=== PATIENT | male | born 1930 | race Caucasian/White ===

== ENCOUNTER 2017-07-27 14:13 | Emergency (ER) | payer MEDICARE ==
[~2017-07-27] VITALS: Ht 167.6 cm; Wt 74.0 kg
[~2017-07-27 14:13] MED LIST: ASPI325T PO; ASPI81TA82 PO; HYDR-2768 PO; LEVO.025 PO; PRAV10 PO
[2017-07-27 14:18] VITALS: BP 160/76; PULSE 73; RESP 17; TEMP 98.3; O2SAT 96
[2017-07-27] MEDS ORDERED: ASPI81TA23 PO (14:58)
[2017-07-27] MEDS ORDERED: LEVO25TA4 PO (14:58)
[2017-07-27] MEDS ORDERED: HYDR25TA5 PO (14:58)
[2017-07-27] MEDS ORDERED: SIMV5TAB3 PO (14:58)
[2017-07-27] MEDS ORDERED: VITA1CAP7 PO (14:58)
[2017-07-27] MEDS ORDERED: VANCOMYCIN INJ 1,000 MG in SODIUM CHLOR 0.9% 250 ML INJ 250 ML IV STA (15:15)
[2017-07-27] MEDS ORDERED: PIPERACIL-TAZO 4.5 GM PREMIX 100 ML IV STA (15:15)
[2017-07-27 15:20] VITALS: BP 131/75; PULSE 71; RESP 16; TEMP 98.7; O2SAT 97
--- NOTE | 2017-07-27 15:26 | PD ---
HPI . Redness and swelling of the leg Chief Complaint: Skin Problem Time Seen by Provider: 15:13 Travel History International Travel<30 days: No Contact w/Intl Traveler<30days: No Traveled to known affect area: No History of Present Illness HPI This patient is brought in by his for evaluation of a wound to the left lower extremity. The history is obtained from his . She states that he has no short-term memory secondary to a previous stroke. He struck his left lower leg on a footstool a week ago. He suffered a laceration. His is been treating it at home with local wound care and antibiotic ointment. Despite this, the area became red, hot and swollen yesterday. She states that she took him to urgent care this morning and that they instructed her to bring him to the emergency department. He has noted no fever. He has not been complaining with any pain. PFSH Past Medical History Hx Anticoagulant Therapy: Yes (ASA DAILY) Atrial Fibrillation: Yes Cancer: Yes Cardiac Catheterization: Yes (ABLATION FOR AFIB) Cardiovascular Problems: Yes (HTN, AFIB, CARDIAC ABLATION) High Cholesterol: Yes Cerebrovascular Accident: Yes (STROKE) Diminished Hearing: No Hypertension: Yes Neurologic: Yes (short term memory loss due to hx of stroke) Immunizations Current: Yes Tetanus Vaccination: < 5 Years Influenza Vaccination: Yes Past Surgical History Prostatectomy: Yes (TURP) Other Surgery: Yes (RIGHT EAR SKIN CANCER REMOVED/REFORMED, hemorrhoidectomy) Social History Alcohol Use: Yes (mix drinks, or wine occas) Tobacco Use: No (QUIT 30 yrs ago smoked cigs) Substance Use: No Allergies-Medications (Allergen,Severity, Reaction): Coded Allergies: No Known Allergies (Verified Allergy, Unknown, 07/27/17) Reported Meds & Prescriptions Reported Meds & Active Scripts Active Reported Vitamin A (Vitamin A Palmitate) Unknown Strength Capsule Unknown Dose PO DAILY Simvastatin 5 Mg Tab 5 Mg PO DAILY Levothyroxine (Levothyroxine Sodium) 25 Mcg Tab 25 Mcg PO DAILY Hydrochlorothiazide 25 Mg Tab 25 Mg PO DAILY Aspirin EC (Aspirin) 81 Mg Tabdr 81 Mg PO DIRECTED take on days sat Review of Systems Except as stated in HPI: all other systems reviewed are Neg General / Constitutional: No: Fever, Chills Musculoskeletal: Positive: Edema Skin: Positive Change in Pigmentation Physical Exam Narrative GENERAL: Awake and alert and in no acute distress. SKIN: Warm and dry. He has a wound on the anterior driscoll which is about 5 mm in diameter. The tissue has started to epithelialize. There is no drainage. The surrounding skin does have some redness and warmth. It is very mild. HEAD: Normocephalic/atraumatic. EYES: Pupils are equal. Extraocular movements are intact. NECK: Normal range of motion. CARDIOVASCULAR: Regular rate and rhythm. RESPIRATORY: Nonlabored respirations. MUSCULOSKELETAL: Atraumatic. NEUROLOGICAL: Nonfocal. PSYCHIATRIC: Appropriate mood and affect. Data Data Last Documented VS Vital Signs Date Time Temp Pulse Resp B/P (MAP) Pulse Ox O2 Delivery O2 Flow Rate FiO2 07/27/17 15:20 98.7 71 16 131/75 (93) 97 Room Air Orders Orders Sepsis Workup Initiated (07/27/17 ) Complete Blood Count With Diff (07/27/17 15:15) Comprehensive Metabolic Panel (07/27/17 15:15) Lactic Acid Sepsis Protocol (07/27/17 15:15) Blood Culture (07/27/17 15:15) Iv Access Insert/Monitor (07/27/17 15:15) Piperacil-Tazo 4.5 Gm Premix (Zosyn 4.5 (07/27/17 15:15) Vancomycin Inj (Vancomycin Inj) (07/27/17 15:15) Labs Laboratory Tests Test 07/27/17 15:40 White Blood Count 3.7 TH/MM3 Red Blood Count 4.02 MIL/MM3 Hemoglobin 13.2 GM/DL Hematocrit 40.2 % Mean Corpuscular Volume 99.9 FL Mean Corpuscular Hemoglobin 32.8 PG Mean Corpuscular Hemoglobin Concent 32.8 % Red Cell Distribution Width 12.8 % Platelet Count 166 TH/MM3 Mean Platelet Volume 6.8 FL Neutrophils (%) (Auto) 60.8 % Lymphocytes (%) (Auto) 25.7 % Monocytes (%) (Auto) 11.1 % Eosinophils (%) (Auto) 2.0 % Basophils (%) (Auto) 0.4 % Neutrophils # (Auto) 2.3 TH/MM3 Lymphocytes # (Auto) 0.9 TH/MM3 Monocytes # (Auto) 0.4 TH/MM3 Eosinophils # (Auto) 0.1 TH/MM3 Basophils # (Auto) 0.0 TH/MM3 CBC Comment DIFF FINAL Differential Comment Blood Urea Nitrogen 19 MG/DL Creatinine 1.10 MG/DL Random Glucose 100 MG/DL Total Protein 6.8 GM/DL Albumin 3.3 GM/DL Calcium Level 8.9 MG/DL Alkaline Phosphatase 97 U/L Aspartate Amino Transf (AST/SGOT) 45 U/L Alanine Aminotransferase (ALT/SGPT) 52 U/L Total Bilirubin 0.7 MG/DL Sodium Level 139 MEQ/L Potassium Level 4.3 MEQ/L Chloride Level 102 MEQ/L Carbon Dioxide Level 30.4 MEQ/L Anion Gap 7 MEQ/L Estimat Glomerular Filtration Rate 64 ML/MIN Lactic Acid Level 0.9 mmol/L [facility] Medical Decision Making Medical Screen Exam Complete: Yes Emergency Medical Condition: Yes Differential Diagnosis My differential diagnosis includes but is not limited to localized wound infection, cellulitis, abscess Narrative Course This patient presents with cellulitis of his left lower extremity following a wound a week ago. I have ordered a septic workup although I suspect localized cellulitis. Pending workup, he will be treated with Zosyn and vancomycin. He does not meet SIRS criteria. CBC & BMP Diagram 07/27/17 15:40 Total Protein 6.8, Albumin 3.3 L, Calcium Level 8.9, Alkaline Phosphatase 97, Aspartate Amino Transf (AST/SGOT) 45 H, Alanine Aminotransferase (ALT/SGPT) 52, Total Bilirubin 0.7 LA 0.9 To home and treatment as an outpatient. Diagnosis Primary Impression: Cellulitis of left leg Patient Instructions: Cellulitis (DC), General Instructions Med/Other Pt SpecificInfo: Prescription(s) given Scripts Cephalexin (Keflex) 500 Mg Cap 500 MG PO Q8H for Infection, #30 CAP 0 Refills Prov: Reyna Pastor MD 07/27/17 Disposition: 01 DISCHARGE HOME Condition: Stable Reyna Pastor MD Jul 27, 2017 15:26
[2017-07-27 15:48] LABS: AUTOMATED NEUTROPHIL # 2.3 TH/MM3 (1.8-7.7); BASOPHIL % 0.4 % (0.0-2.0); EOSINOPHIL # 0.1 TH/MM3 (0-0.4); HEMATOCRIT 40.2 % (39.0-51.0); HEMOGLOBIN 13.2 GM/DL (13.0-17.0); LYMPH % 25.7 % (9.0-44.0); LYMPHOCYTE # 0.9 TH/MM3 (1.0-4.8); MEAN CELL VOLUME 99.9 FL (80.0-100.0); MEAN CORPUSCULAR HEMOGLOBIN 32.8 PG (27.0-34.0); MEAN CORPUSCULAR HGB CONC 32.8 % (32.0-36.0); MEAN PLATELET VOLUME 6.8 FL (7.0-11.0); MONO % 11.1 % (0.0-8.0); MONOCYTE # 0.4 TH/MM3 (0-0.9); NEUT % 60.8 % (16.0-70.0); PLATELET COUNT 166 TH/MM3 (150-450); RED BLOOD COUNT 4.02 MIL/MM3 (4.50-5.90); RED CELL DISTRIBUTION WIDTH 12.8 % (11.6-17.2); WHITE BLOOD COUNT 3.7 TH/MM3 (4.0-11.0)
[2017-07-27 15:59] LABS: CHLORIDE 102 MEQ/L (98-107); SODIUM (NA) 139 MEQ/L (136-145)
[2017-07-27 16:02] LABS: ALBUMIN 3.3 GM/DL (3.4-5.0); BICARBONATE 30.4 MEQ/L (21.0-32.0); CALCIUM 8.9 MG/DL (8.5-10.1); GLUCOSE,RANDOM 100 MG/DL (74-106)
[2017-07-27 16:03] LABS: BLOOD UREA NITROGEN 19 MG/DL (7-18)
[2017-07-27 16:06] LABS: ALT (GPT) 52 U/L (12-78); AST (GOT) 45 U/L (15-37); GLOMERULAR FILTRATION RATE 64 ML/MIN (>89)
[2017-07-27 16:07] LABS: TOTAL BILIRUBIN ADULT 0.7 MG/DL (0.2-1.0); TOTAL PROTEIN 6.8 GM/DL (6.4-8.2)
[2017-07-27 16:08] LABS: ALKALINE PHOSPHATASE 97 U/L (45-117)
[2017-07-27] MEDS ORDERED: CEPH-460 PO (16:15)
== END 2017-07-27 18:58 | disposition home or self-care (01) ==
LOC: PHED 14:13
DX: L03.116 Cellulitis of left lower limb (principal); I48.91 Unspecified atrial fibrillation; E78.00 Pure hypercholesterolemia, unspecified; I10 Essential (primary) hypertension; Z86.73 Personal history of transient ischemic attack (TIA), and cerebral infarction without residual deficits; Z79.82 Long term (current) use of aspirin; Z79.899 Other long term (current) drug therapy
CPT/HCPCS: 80053; 83605; 85025; 87040; 96365; 96367; 99284; J2543; J3370; J7050

== ENCOUNTER 2017-12-04 05:24 | Inpatient (IN) | payer MEDICARE, BC ==
[~2017-12-04] VITALS: Ht 172.7 cm; Wt 70.5 kg
[2017-12-04] VITALS (13 sets, daily range): BP systolic 142–185; BP diastolic 70–92; PULSE 56–76; RESP 16–18; TEMP 97.5–98.6; O2SAT 95–98
[~2017-12-04 05:24] MED LIST changes: -ASPI325T PO; +ASPI81TA23 PO; -ASPI81TA82 PO; +CEPH-460 PO; -HYDR-2768 PO; +HYDR25TA5 PO; -LEVO.025 PO; +LEVO25TA4 PO; -PRAV10 PO; +SIMV5TAB3 PO; +VITA1CAP7 PO
[2017-12-04] MEDS ORDERED: VITA100T50 (05:45)
[2017-12-04] MEDS ORDERED: NITROGLYCERIN 2% OINT 1 GM PACKET TOPICAL ONE (05:45)
[2017-12-04] MEDS ORDERED: LISI-519 PO (05:45)
[2017-12-04 05:50] LABS: AUTOMATED NEUTROPHIL # 1.8 TH/MM3 (1.8-7.7); BASOPHIL % 1.1 % (0.0-2.0); EOSINOPHIL # 0.1 TH/MM3 (0-0.4); HEMATOCRIT 40.8 % (39.0-51.0); HEMOGLOBIN 14.5 GM/DL (13.0-17.0); LYMPHOCYTE # 1.5 TH/MM3 (1.0-4.8); MEAN CELL VOLUME 97.1 FL (80.0-100.0); MEAN CORPUSCULAR HEMOGLOBIN 34.6 PG (27.0-34.0); MEAN CORPUSCULAR HGB CONC 35.6 % (32.0-36.0); MEAN PLATELET VOLUME 7.8 FL (7.0-11.0); MONO % 11.7 % (0.0-8.0); MONOCYTE # 0.5 TH/MM3 (0-0.9); NEUT % 46.2 % (16.0-70.0); PLATELET COUNT 136 TH/MM3 (150-450); RED CELL DISTRIBUTION WIDTH 13.3 % (11.6-17.2); WHITE BLOOD COUNT 3.9 TH/MM3 (4.0-11.0)
--- NOTE | 2017-12-04 05:52 | PD ---
HPI Chief Complaint: Chest Pain Time Seen by Provider: 05:34 Travel History International Travel<30 days: No Contact w/Intl Traveler<30days: No Traveled to known affect area: No History of Present Illness HPI The patient is an 87 year old male who presents to the [facility] emergency department with a history of according to ambulance services of awakening with chest pain prior to arrival. They report the fire rescue also evaluated the patient earlier in the evening related to an episode of chest pain that resolved prior to transport, therefore the patient decided to stay home. The patient has a known prior history of atrial fibrillation status post ablation. The patient's power brake rebuilder is Dr. Rooney. The patient received 3 low-dose aspirins prior to arrival and 1 sublingual nitroglycerin. The patient unfortunately has a history of short-term memory loss related to a prior stroke. The patient cannot recall having the chest pain at this time. He denies having any chest pain currently. He denies having any shortness of breath. The patient's is on the way and should be able to assist with further history. The patient lives at home with his . The patient's arrived at the bedside and reports a history of the patient having chest pain at 7:30 PM last night. The chest pain she reports was severe and associated with shortness of breath. She reports that the pain lasted for a few minutes and then resolved. The patient reports that at 4 AM he again awoke with pain that was severe in the center of his chest and associated with shortness of breath. She reports that this time the chest pain lasted longer for up to 30 minutes. She reports that he had been on a low-dose aspirin daily up until 3 weeks ago, however this was discontinued with the approval of his primary care physician due to easy bruising. She additionally reports that she recently started him on vitamin K supplementation because of easy bruising and bleeding. She denies of having any prior history of coronary artery disease or congestive heart failure. She does not recall him having a stress test done in years. 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, hyperlipidemia, hypertension, hypothyroid disorder Hx Anticoagulant Therapy: Yes (ASA DAILY) Atrial Fibrillation: Yes Cancer: Yes Cardiac Catheterization: Yes (ABLATION FOR AFIB) Cardiovascular Problems: Yes (HTN, AFIB, CARDIAC ABLATION) High Cholesterol: Yes Cerebrovascular Accident: Yes (STROKE) Diminished Hearing: No Hypertension: Yes Neurologic: Yes (short term memory loss due to hx of stroke) Immunizations Current: Yes Influenza Vaccination: Yes Past Surgical History Narrative Surgical The patient's past surgical history is significant for skin cancer removal from the right ear, hemorrhoidectomy, TURP, cardiac ablation Prostatectomy: Yes (TURP) Other Surgery: Yes (RIGHT EAR SKIN CANCER REMOVED/REFORMED, hemorrhoidectomy) Social History Alcohol Use: Yes (Occasional drink according to his ) Tobacco Use: No (QUIT 30 yrs ago smoked cigs) Substance Use: No Allergies-Medications (Allergen,Severity, Reaction): Coded Allergies: No Known Allergies (Verified Allergy, Unknown, 12/04/17) Reported Meds & Prescriptions Reported Meds & Active Scripts Active Reported Vitamin K (Phytonadione) 100 Mcg Tab Lisinopril 5 Mg Tab 5 Mg PO DAILY Simvastatin 5 Mg Tab 5 Mg PO DAILY Levothyroxine (Levothyroxine Sodium) 25 Mcg Tab 25 Mcg PO DAILY Review of Systems Except as stated in HPI: all other systems reviewed are Neg General / Constitutional: No: Fever Eyes: No: Visual changes HENT: No: Headaches Cardiovascular: Positive: Chest Pain or Discomfort Respiratory: Positive: Shortness of Breath Gastrointestinal: No: Abdominal Pain Genitourinary: No: Dysuria Musculoskeletal: No: Pain Skin: No Rash Neurologic: No: Weakness Psychiatric: No: Depression Endocrine: No: Polydipsia Hematologic/Lymphatic: No: Easy Bruising Physical Exam Narrative General: The patient is a well-developed well-nourished male in no acute distress. Head and Neck exam: Head is normocephalic atraumatic. Eyes: EOMI, pupils are equal round and reactive to light. Nose: Midline septum with pink mucous membranes Mouth: Dentition unremarkable. Moist mucus membranes. Posterior oropharynx is not erythematous. No tonsillar hypertrophy. Uvula midline. Airway patent. Neck: No palpable lymphadenopathy. No nuchal rigidity. No thyromegaly. Cardiovascular: Regular rate and rhythm without murmurs, gallops, or rubs. No pulse deficit to the extremities on simultaneous auscultation and palpation of his radial artery. Lungs: Clear to auscultation bilaterally. No wheezes, rhonchi, or rales. Abdomen: Soft, without tenderness to palpation in all 4 quadrants of the abdomen. No guarding, rebound, or rigidity. Normal bowel sounds are audible. No tenderness on palpation of McBurney's point. Extremities: No clubbing, cyanosis, or edema. 2+ pulses in all 4 extremities. No calf tenderness on palpation. Back: No costovertebral angle tenderness to palpation. Neurologic Exam: Grossly nonfocal. Skin Exam: No rash noted. Intact skin that is warm and dry. Data Data Last Documented VS Vital Signs Date Time Temp Pulse Resp B/P (MAP) Pulse Ox O2 Delivery O2 Flow Rate FiO2 12/04/17 06:01 58 18 157/86 (109) 95 Room Air 12/04/17 05:28 97.5 Orders Orders Electrocardiogram (12/04/17 05:34) Complete Blood Count With Diff (12/04/17 05:34) Comprehensive Metabolic Panel (12/04/17 05:34) Creatine Kinase (Cpk) (12/04/17 05:34) Ckmb (Isoenzyme) Profile (12/04/17 05:34) Troponin I (12/04/17 05:34) B-Type Natriuretic Peptide (12/04/17 05:34) Prothrombin Time / Inr (Pt) (12/04/17 05:34) Act Partial Throm Time (Ptt) (12/04/17 05:34) Lipase (12/04/17 05:34) Magnesium (Mg) (12/04/17 05:34) Chest, Single Ap (12/04/17 05:34) Iv Access Insert/Monitor (12/04/17 05:34) Ecg Monitoring (12/04/17 05:34) Oximetry (12/04/17 05:34) Nitroglycerin 2% Oint (Nitroglycerin 2% (12/04/17 05:45) Heparin Inj (Heparin Inj) (12/04/17 06:45) Heparin-D5w 25,000 U/250 Ml (Heparin-D5w (12/04/17 06:45) Cbc No Diff, Includes Plts (12/07/17 06:00) Act Partial Throm Time (Ptt) (12/04/17 13:33) Occult Blood (Hemoccult) Stool (12/04/17 06:33) Admit Order (Ed Use Only) (12/04/17 06:42) Admit To Inpatient (12/04/17 ) Vital Signs (Adult) Q4H (12/04/17 06:41) Activity Oob With Assistance (12/04/17 06:41) Diet Npo (12/04/17 Breakfast) Sodium Chloride 0.9% Flush (Ns Flush) (12/04/17 06:45) Sodium Chloride 0.9% Flush (Ns Flush) (12/04/17 09:00) Acetaminophen (Tylenol) (12/04/17 06:45) Ondansetron Inj (Zofran Inj) (12/04/17 06:45) Basic Metabolic Panel (Bmp) (12/05/17 06:00) Complete Blood Count With Diff (12/05/17 06:00) Creatine Kinase (Cpk) (12/04/17 11:40) Creatine Kinase (Cpk) (12/04/17 17:40) Troponin I (12/04/17 11:40) Troponin I (12/04/17 17:40) Electrocardiogram (12/04/17 11:40) Electrocardiogram (12/04/17 17:40) Resp Oxygen Tapan C Titrat 1-4 L (12/04/17 ) Case Management Consult (12/04/17 06:41) Naloxone Inj (Narcan Inj) (12/04/17 06:45) Docusate Sodium-Senna (Marielle-Colace) (12/04/17 09:00) Magnesium Hydroxide Liq (Milk Of Magnesi (12/04/17 06:45) Sennosides (Senokot) (12/04/17 06:45) Bisacodyl Supp (Dulcolax Supp) (12/04/17 06:45) Lactulose Liq (Lactulose Liq) (12/04/17 06:45) Inpatient Certification (12/04/17 ) Consult Cardiology (12/04/17 ) Levothyroxine (Synthroid) (12/04/17 09:00) Lisinopril (Prinivil) (12/04/17 09:00) Pravastatin (Pravachol) (12/04/17 09:00) Labs Laboratory Tests Test 12/04/17 05:40 White Blood Count 3.9 TH/MM3 Red Blood Count 4.20 MIL/MM3 Hemoglobin 14.5 GM/DL Hematocrit 40.8 % Mean Corpuscular Volume 97.1 FL Mean Corpuscular Hemoglobin 34.6 PG Mean Corpuscular Hemoglobin Concent 35.6 % Red Cell Distribution Width 13.3 % Platelet Count 136 TH/MM3 Mean Platelet Volume 7.8 FL Neutrophils (%) (Auto) 46.2 % Lymphocytes (%) (Auto) 39.0 % Monocytes (%) (Auto) 11.7 % Eosinophils (%) (Auto) 2.0 % Basophils (%) (Auto) 1.1 % Neutrophils # (Auto) 1.8 TH/MM3 Lymphocytes # (Auto) 1.5 TH/MM3 Monocytes # (Auto) 0.5 TH/MM3 Eosinophils # (Auto) 0.1 TH/MM3 Basophils # (Auto) 0.0 TH/MM3 CBC Comment DIFF FINAL Differential Comment Prothrombin Time 10.7 SEC Prothromb Time International Ratio 1.1 RATIO Activated Partial Thromboplast Time 25.3 SEC Blood Urea Nitrogen 17 MG/DL Creatinine 1.10 MG/DL Random Glucose 90 MG/DL Total Protein 6.7 GM/DL Albumin 3.6 GM/DL Calcium Level 8.9 MG/DL Magnesium Level 2.0 MG/DL Alkaline Phosphatase 80 U/L Aspartate Amino Transf (AST/SGOT) 20 U/L Alanine Aminotransferase (ALT/SGPT) 17 U/L Total Bilirubin 0.7 MG/DL Sodium Level 144 MEQ/L Potassium Level 3.9 MEQ/L Chloride Level 111 MEQ/L Carbon Dioxide Level 25.7 MEQ/L Anion Gap 7 MEQ/L Estimat Glomerular Filtration Rate 64 ML/MIN Total Creatine Kinase 66 U/L Troponin I 0.29 NG/ML B-Type Natriuretic Peptide 46 PG/ML Lipase 136 U/L MDM Medical Decision Making Medical Screen Exam Complete: Yes Emergency Medical Condition: Yes Medical Record Reviewed: Yes Differential Diagnosis Acute coronary syndrome, versus acid reflux, versus pulmonary embolism, versus aortic dissection, versus pneumonia, versus new onset congestive heart failure Narrative Course During the course of the patient's emergency department visit, the patient's history, examination, and differential diagnosis were reviewed with the patient. The patient was placed on a monitor car operator with oximetry and frequent blood pressure monitoring. The patient had IV access obtained and blood work sent for analysis. The patient had an EKG done on arrival that shows a sinus rhythm heart rate is 62, left axis deviation, QRS duration is 102 ms, QTC [address] segment elevation is noted. The patient was initially provided nitroglycerin 1 inch the chest wall. The patient was provided aspirin prior to arrival. The patient's laboratory studies were reviewed and remarkable for 12/04/17 05:40 Total Protein 6.7, Albumin 3.6, Calcium Level 8.9, Magnesium Level 2.0, Alkaline Phosphatase 80, Aspartate Amino Transf (AST/SGOT) 20, Alanine Aminotransferase (ALT/SGPT) 17, Total Bilirubin 0.7. The patient's CPK was 66, troponin I elevated at 0.29, lipase 136, BNP 46, PT PTT within normal limits. Given the patient's elevated troponin and recurrent chest pain over the evening , the patient was started on heparin per [place] protocol. Radiology studies were reviewed and remarkable for Last Impressions Chest X-Ray 12/04/17 0534 Signed Impressions: Service Date/Time: Monday, December 04, 2017 05:51 - CONCLUSION: Mild atelectatic changes/faint airspace disease in the left base. Jose Cosme MD The patient's results were discussed with the patient, including the plan of care. I explained that further testing and/ or monitoring is indicated based on the patient's history, examination, and/ or laboratory findings. Therefore, I recommended admission for additional evaluation. The patient expressed understanding and was agreeable with this plan. The patient was admitted to the hospital in stable condition and sent to a bed under the care of the [facility] service. Physician Communication Physician Communication The patient's case including history, pertinent physical examination findings, and laboratory studies were discussed with Dr. Metzger. It was agreed that the patient would be admitted to the [facility] service. Diagnosis Primary Impression: Chest pain, rule out acute myocardial infarction Additional Impression: Elevated troponin I level Admitting Information Admitting Physician Requests: Admit Felipa Flores MD December 04, 2017 05:52
[2017-12-04 06:07] LABS: PROTHROMBIN TIME - PATIENT 10.7 SEC (9.8-11.6)
[2017-12-04 06:08] LABS: INTERNATIONAL NORMALIZED RATIO 1.1 RATIO
[2017-12-04 06:16] LABS: ALBUMIN 3.6 GM/DL (3.4-5.0); ALKALINE PHOSPHATASE 80 U/L (45-117); ALT (GPT) 17 U/L (12-78); AST (GOT) 20 U/L (15-37); BICARBONATE 25.7 MEQ/L (21.0-32.0); BLOOD UREA NITROGEN 17 MG/DL (7-18); CALCIUM 8.9 MG/DL (8.5-10.1); CHLORIDE 111 MEQ/L (98-107); GLOMERULAR FILTRATION RATE 64 ML/MIN (>89); GLUCOSE,RANDOM 90 MG/DL (74-106); SODIUM (NA) 144 MEQ/L (136-145); TOTAL BILIRUBIN ADULT 0.7 MG/DL (0.2-1.0); TOTAL PROTEIN 6.7 GM/DL (6.4-8.2); TROPONIN I 0.29 NG/ML (0.02-0.05)
--- NOTE | 2017-12-04 06:19 | RADRPT ---
EXAM DATE/TIME: 12/04/2017 05:51 [facility] COMPARISON: CHEST SINGLE AP, April 04, 2015, 0:26. INDICATIONS : Chest pain. MEDICAL HISTORY : None. SURGICAL HISTORY : None. ENCOUNTER: Initial ACUITY: 1 day PAIN SCORE: 7/10 LOCATION: Bilateral chest FINDINGS: A single view of the chest demonstrates mild atelectatic changes above the left hemidiaphragm with a faint air space process more medially. Right lung remains clear. Heart size is normal. Osseous struct ures are intact CONCLUSION: Mild atelectatic changes/faint airspace disease in the left base. Jose Cosme MD on December 04, 2017 at 6:16 Board Certified Radiologist. This report was verified electronically.
[2017-12-04] MEDS ORDERED: BISACODYL 10 MG SUPP RECTAL PRN (06:45)
[2017-12-04] MEDS ORDERED: NALOXONE HCL 0.4 MG/ML AMP IV PUSH PRN (06:45)
[2017-12-04] MEDS ORDERED: ACETAMINOPHEN 325 MG TAB PO PRN (06:45)
[2017-12-04] MEDS ORDERED: SENNOSIDES 8.6 MG TAB PO PRN (06:45)
[2017-12-04] MEDS ORDERED: HEPARIN-D5W 25,000 U/250 ML 250 ML IV PRN (06:45)
[2017-12-04] MEDS ORDERED: HEPARIN SODIUM - IV 10,000 UNITS/10 ML VIAL IV ONE (06:45)
[2017-12-04] MEDS ORDERED: SODIUM CHLORIDE 0.9% FLUSH 10 ML FLUSH IV FLUSH PRN (06:45)
[2017-12-04] MEDS ORDERED: LACTULOSE SYRUP 20 GM/30 ML CUP PO PRN (06:45)
[2017-12-04] MEDS ORDERED: MAGNESIUM HYDROXIDE SUSP 30 ML CUP PO PRN (06:45)
[2017-12-04] MEDS ORDERED: ONDANSETRON HCL 4 MG/2 ML VIAL IVP PRN (06:45)
[2017-12-04] MEDS ORDERED: PRAVASTATIN SOD 10 MG TAB PO SCH (09:00)
[2017-12-04] MEDS ORDERED: LEVOTHYROXINE SODIUM 25 MCG TAB PO SCH (09:00)
--- NOTE | 2017-12-04 09:36 | EKG ---
Date Performed: 12/04/2017 Time Performed: 05:23:58 PTAGE: 87 years EKG: Normal Sinus rhythm with first degree AV block Marked baselline artifact Incomplete right bundle branch block PREVIOUS TRACING 04/03/15 Aside from artifact, no change from the prior tracing. DOCTOR: Damon Flores Interpretating Date/Time 12/04/2017 09:35:46
[2017-12-04] MEDS: LISINOPRIL 5 MG TAB PO SCH (10:46)
[2017-12-04] MEDS: DOCUSATE SODIUM 50 MG/SENNA 8.6 MG TAB PO SCH ×2 (10:46→21:45)
[2017-12-04] MEDS: SODIUM CHLORIDE 0.9% FLUSH 10 ML FLUSH IV FLUSH SCH ×2 (10:47→21:46)
[2017-12-04] MEDS ORDERED: IOHEXOL 350 MG/ML 100 ML BTL (for Cath Lab) OTHER ONE (11:03)
[2017-12-04 13:21] LABS: TROPONIN I 0.36 NG/ML (0.02-0.05)
--- NOTE | 2017-12-04 14:23 | MB ---
cc: Hong Rooney MD DATE: 12/04/2017 HISTORY OF PRESENT ILLNESS: An 87-year-old white male with a history of atrial fibrillation, ablation and CVA with permanent short-term memory deficits, dyslipidemia, hypertension and hypothyroidism. His reported that he suddenly started to clutch his chest and complained of severe substernal chest discomfort. At this time, he does not remember his symptoms. He was found to have a troponin elevation consistent with non-ST elevation myocardial infarction. He is currently pain free. PAST MEDICAL HISTORY: Positive for atrial fibrillation, AFib ablation, CVA in 2009, permanent short-term memory loss, dyslipidemia, hypertension, hypothyroidism. MEDICATIONS: Include levothyroxine, simvastatin, lisinopril, vitamin K. ALLERGIES: NONE. SOCIAL HISTORY: The patient does not smoke. He quit smoking years ago. He drinks alcohol occasionally. FAMILY HISTORY: Positive for heart disease in his father. REVIEW OF SYSTEMS: Otherwise negative. PHYSICAL EXAMINATION: VITAL SIGNS: Blood pressure 142/70, pulse 64 and regular. HEENT: Negative. NECK: 2+ upstroke. No bruits. LUNGS: Clear. HEART: Regular with no murmur, gallop or rub. ABDOMEN: Soft. No bruits. EXTREMITIES: Without edema, 2+ distal pulses. NEUROLOGIC: Grossly nonfocal. LABORATORY AND DIAGNOSTIC DATA: EKG was reviewed and showed normal sinus rhythm, first degree AV block, left axis, incomplete right bundle branch block. Labs: Hemoglobin 14.5. Potassium 3.9, creatinine 1.1. AST, ALT normal. Troponin 0.29 and 0.36, CK 66 and 53. BNP 46. DIAGNOSES: 1. Non-ST elevation myocardial infarction. 2. Hypertension. 3. Dyslipidemia. 4. History of cerebrovascular accident with permanent short-term memory loss. 5. History of radiofrequency ablation for atrial fibrillation. DISPOSITION: Mr. Celeste will undergo cardiac catheterization and coronary intervention if necessary. The patient and his understand the risks and benefits and wish to proceed. Hong Rooney MD OQ/SB , 02:06 PM , 02:23 PM
--- NOTE | 2017-12-04 15:18 | HHI.HP ---
HPI Service [facility] Primary Care Physician Nicholas Parker MD Admission Diagnosis Chest pain, elevated troponin Diagnoses: Travel History International Travel<30 Days: No Contact w/Intl Traveler <30 Da: No Traveled to Known Affected Are: No History of Present Illness Patient is an 87-year-old male with past medical history of atrial fibrillation status post ablation, CVA with short-term memory deficit, hyperlipidemia, hypertension, hyperthyroidism presented to the emergency room with complaints of chest pains. History is obtained from significant other who states that around 7 PM last night patient started grabbing his chest and could not breathe. He also started shaking and she took his blood pressure which was a systolic blood pressure 180s. She called EMS, they came and evaluated him at his house and since because he had eaten one quarter pounder, they thought it was related to indigestion as EKG was normal and he was not taken to the hospital. Around 4 AM, when he was back from the bathroom, he started again experiencing excruciating pain. She decided to call EMS again. On both occasions he received nitroglycerin spray. gave him a full dose of aspirin. Patient was not diaphoretic per significant other, and did not complain of any lightheadedness or dizziness. She did note that he had poor capillary refill on exam while the EMS were there. Currently, patient denies any chest pain, shortness of breath, nausea or vomiting. Review of Systems Except as stated in HPI: all other systems reviewed are Neg Past Family Social History Past Medical History atrial fibrillation status post ablation, CVA with short-term memory deficit, hyperlipidemia, hypertension, hyperthyroidism Past Surgical History Cardiac ablation, TURP Reported Medications Reported Meds & Active Scripts Active Reported Vitamin K (Phytonadione) 100 Mcg Tab Lisinopril 5 Mg Tab 5 Mg PO DAILY Simvastatin 5 Mg Tab 5 Mg PO DAILY Levothyroxine (Levothyroxine Sodium) 25 Mcg Tab 25 Mcg PO DAILY Allergies: Coded Allergies: No Known Allergies (Verified Allergy, Unknown, 12/04/17) Family History Mother had a CVA, father had a heart attack Social History Quit smoking 30 years ago. He used to smoke a pack a day for 37 years. Drinks wine occasionally. Denies illegal drug use. Physical Exam Vital Signs Vital Signs Date Time Temp Pulse Resp B/P (MAP) Pulse Ox O2 Delivery O2 Flow Rate FiO2 12/04/17 12:00 64 12/04/17 08:26 97.6 56 17 142/70 (94) 96 12/04/17 08:10 12/04/17 06:01 58 18 157/86 (109) 95 Room Air 12/04/17 05:36 98 Room Air 12/04/17 05:35 69 16 98 Room Air 12/04/17 05:28 97.5 61 18 185/90 (121) 98 Room Air Physical Exam GENERAL: elderly male, pleasant, appears comfortable SKIN: No rashes, ecchymoses or lesions. Cool and dry. HEAD: Atraumatic. Normocephalic. No temporal or scalp tenderness. EYES: Extraocular motions intact. ENT: Nose drainage. Airway patent. NECK: Trachea midline. No JVD or lymphadenopathy. CARDIOVASCULAR: Regular rate and rhythm without murmurs RESPIRATORY: Clear to auscultation. Breath sounds equal bilaterally. No wheezes GASTROINTESTINAL: Abdomen soft, non-tender, nondistended. No guarding. MUSCULOSKELETAL: Extremities without edema. NEUROLOGICAL: Awake and alert. Normal speech. Pt does forget recent events/ questions Laboratory Laboratory Tests Test 12/04/17 05:40 12/04/17 11:49 White Blood Count 3.9 Red Blood Count 4.20 Hemoglobin 14.5 Hematocrit 40.8 Mean Corpuscular Volume 97.1 Mean Corpuscular Hemoglobin 34.6 Mean Corpuscular Hemoglobin Concent 35.6 Red Cell Distribution Width 13.3 Platelet Count 136 Mean Platelet Volume 7.8 Neutrophils (%) (Auto) 46.2 Lymphocytes (%) (Auto) 39.0 Monocytes (%) (Auto) 11.7 Eosinophils (%) (Auto) 2.0 Basophils (%) (Auto) 1.1 Neutrophils # (Auto) 1.8 Lymphocytes # (Auto) 1.5 Monocytes # (Auto) 0.5 Eosinophils # (Auto) 0.1 Basophils # (Auto) 0.0 CBC Comment DIFF FINAL Differential Comment Prothrombin Time 10.7 Prothromb Time International Ratio 1.1 Activated Partial Thromboplast Time 25.3 Blood Urea Nitrogen 17 Creatinine 1.10 Random Glucose 90 Total Protein 6.7 Albumin 3.6 Calcium Level 8.9 Magnesium Level 2.0 Alkaline Phosphatase 80 Aspartate Amino Transf (AST/SGOT) 20 Alanine Aminotransferase (ALT/SGPT) 17 Total Bilirubin 0.7 Sodium Level 144 Potassium Level 3.9 Chloride Level 111 Carbon Dioxide Level 25.7 Anion Gap 7 Estimat Glomerular Filtration Rate 64 Total Creatine Kinase 66 53 Troponin I 0.29 0.36 B-Type Natriuretic Peptide 46 Lipase 136 Result Diagram: 12/04/1753912/04/17539 Imaging Last Impressions Chest X-Ray 12/04/17533 Signed Impressions: Service Date/Time: Monday, December 04, 2017 05:51 - CONCLUSION: Mild atelectatic changes/faint airspace disease in the left base. MD Gaby Rodríguez VTE Risk Assessment Gaby VTE Risk Assessment: Mod/High Risk (score >= 2) Kimanirini Risk Assessment Model Point Value = 1 Point Value = 2 Point Value = 3 Point Value = 5 Age 41-60 Minor surgery BMI > 25 kg/m2 Swollen legs Varicose veins or History of unexplained or recurrent spontaneous Oral contraceptives or hormone replacement Sepsis (< 1 month) Serious lung disease, including pneumonia (< 1 month) Abnormal pulmonary function Acute myocardial infarction Congestive heart failure (< 1 month) History of inflammatory bowel disease Medical patient at bed rest Age 61-74 Arthroscopic surgery Major open surgery (> 45 min) Laparoscopic surgery (> 45 min) Malignancy Confined to bed (> 72 hours) Immobilizing plaster cast Central venous access Age >= 75 History of VTE Family history of VTE Factor V Leiden Prothrombin [id number] Lupus anticoagulant Anticardiolipin antibodies Elevated serum homocysteine Heparin-induced thrombocytopenia Other congenital or acquired thrombophilia Stroke (< 1 month) Elective arthroplasty Hip, pelvis, or leg fracture Acute spinal cord injury (< 1 month) Prophylaxis Regimen Total Risk Factor Score Risk Level Prophylaxis Regimen 0-1 Low Early ambulation 2 Moderate Order ONE of the following: *Sequential Compression Device (SCD) *Heparin 5000 units SQ BID 3-4 Higher Order ONE of the following medications: *Heparin 5000 units SQ TID *Enoxaparin/Lovenox 40 mg SQ daily (WT < 150 kg, CrCl > 30 mL/min) *Enoxaparin/Lovenox 30 mg SQ daily (WT < 150 kg, CrCl > 10-29 mL/min) *Enoxaparin/Lovenox 30 mg SQ BID (WT < 150 kg, CrCl > 30 mL/min) AND/OR *Sequential Compression Device (SCD) 5 or more Highest Order ONE of the following medications: *Heparin 5000 units SQ TID (Preferred with Epidurals) *Enoxaparin/Lovenox 40 mg SQ daily (WT < 150 kg, CrCl > 30 mL/min) *Enoxaparin/Lovenox 30 mg SQ daily (WT < 150 kg, CrCl > 10-29 mL/min) *Enoxaparin/Lovenox 30 mg SQ BID (WT < 150 kg, CrCl > 30 mL/min) AND *Sequential Compression Device (SCD) Assessment and Plan Assessment and Plan NSTEMI: presented w chest pains, s/p nitro. EKG reviewed and didn't show any ST elevations or depressions. Cardiology notified and plans on cardiac cath later this pm. on heparin gtt. Pt already received full dose of ASA. added nitropaste , coreg 12.5mg po BID. Pt on low dose statin, check lipid profile. May need higher dose. HTN: continue home lisinopril. added vasotec prn hyperlipidemia: resume home med. check lipid profile hypothyroidism: resume synthroid dvt proph: heparin gtt Code Status full Discussed Condition With patient and Hiwot Sims MD December 04, 2017 15:18
[2017-12-04] MEDS ORDERED: HEPARIN-NS/PF FLUSH BAG 2,000 ML IV FLUSH ONE (16:13)
[2017-12-04] MEDS ORDERED: MIDAZOLAM HCL 2 MG/2 ML VIAL ONE (16:23)
[2017-12-04] MEDS ORDERED: NITROGLYCERIN 2% OINT 1 GM PACKET TOPICAL PRN (17:00)
[2017-12-04] MEDS ORDERED: HEPARIN SODIUM - IV 10,000 UNITS/10 ML VIAL ONE (17:01)
[2017-12-04] MEDS ORDERED: CLOPIDOGREL 300 MG TAB ONE (17:27)
[2017-12-04] MEDS ORDERED: MISC INFORMATION XX ONE (17:45)
[2017-12-04] MEDS ORDERED: SODIUM CHLOR 0.9% 1000 ML INJ 1,000 ML IV SCH (17:45)
--- NOTE | 2017-12-04 17:56 | CATHPROC ---
re3D HIS Report Study Information Study Number Admission Scheduled Start Study Start [id number] Dec 04 2017 6:45AM 12/04/2017 Dec 04 2017 3:46PM [place] Service Cardiac Catheterization Admit Source Facility Department Emergency department [facility] - Taping Machine Operator Physician and Clinical Staff Initial [facility] Nursing Assistant Chrissy Chen,RN Hospital Nursing Assistant Isaias RN, Roly Recorder Malaika Clarke,RT(R) Scrub Ifeoma Vallecillo,RT(R) Procedures Performed Procedure Location (Site) Vessel Name Coronary Angiograms LCA Left Coronary Coronary Angiograms RCA Right Coronary PTCA LAD Prox Left Coronary PTCA ADD ON'S Stent LAD Prox Left Coronary Wire insertion Fem Art (right) Femoral Art Equipment Time Leaf Fat Scraper Description Size Mfg Part Number Used/Scraped WIRE, BALANCE MIDDLEWEIGHT [id number] 17:02 [employer] 190CM Used 190CM *[id number] TRANSDUCER, TRUWAVE [id number] 16:21 BATES MAGDALENO * Used W/STOCKCOCK *[id number] *[id number] [id number] *[id number] [id number] *[id number] *[id number] 17:28 DAIG/ST. ANGELA MEDICAL ANGIOSEAL, FR6 VIP FR 6 Used *[id number] 16:21 Ready [employer] INDUSTRIES PACK, CCL CUSTOM * Used *[id number] 16:21 [employer] PACER PEN, SKIN DUAL W/ RULER * Used *[id number] 17:10 MEDTRONIC BALLOON, 2.5 X 15MM EUPHORA 15MM Used *[id number] BALLOON, 2.75 X 15MM NC [id number] 17:20 MEDTRONIC 15MM Used EUPHORA *[id number] 17:15 MEDTRONIC STENT, 2.75 22 INTEGRITY 2.75 22 Used *[id number] 17:06 [employer] MEDICAL 30 CHACORTA INDEFLATOR Used *[id number] SHEATH, FR6 RADIAL PRELUDE 17:29 [employer] MEDICAL FR 6 [id number] Used EASE 11CM [id number] 17:29 [employer] MEDICAL SHEATH, FR6.5 PRELUDE 23CM FR 6.5 Used [id number] 16:21 Abaxia WIRE, 3MMJ .035 180CM 180CM Used *[id number] PROBE COVER, STERILE [id number] 16:21 Student [employer]igned[employer]K MEDICAL * Used ULTRASOUND W/ GEL *[id number] 16:21 NAMIC MANIFOLD, 4 PORT * Used *[id number] 16:26 NAMIC TUBING, HIGH PRESSURE 48" 48" Used *1036023 [id number] 16:21 NAMIC TUBING, HIGH PRESSURE 48" 48" Used *[id number] 16:21 NYCOMED OMNIPAQUE, 350 MG, 150ML 150ML [id number] Used 17:06 NYCOMED OMNIPAQUE, 350 MG, 150ML 150ML [id number] Used 17:06 NYCOMED OMNIPAQUE, 350 MG, 50ML 50ML [id number] Used [id number] 16:21 ALEMAN MEDICAL BLANKET,WARM AIR CCL * Used *[id number] 16:21 TERUMO MEDICAL SHEATH, FR5 TERUMO (10CM) FR 5 Used *[id number] Equipment Model, Serial, Lot Number and Expiration Data Description Model Number Serial Number Lot Number Expiration Date ANGIOSEAL, FR6 VIP [id number] 07-04-2018 STENT, 2.75 22 INTEGRITY [id number] 11-29-2018 History: Current Medications Medication Dosage/Unit Route Frequency Last Date/Time Taken Statins (any) HEPARIN Synthroid History: Allergies Allergy Reaction No Known Allergies History: Risk Factors Family History of Hypertension Dyslipidemia Previous PA Previous Heart Failure Premature CAD Yes Yes Yes No No Prior Valve Prior PCI Prior CABG Surgery No No No Cerebrovascular Peripheral Artery Chronic Lung On Dialysis Diabetes Disease Disease Disease No Yes No No No History: Symptoms/Diagnosis Selection Items Chest pain History: Stress Tests Stress or Imaging Studies Performed No History: Other Disease Selection Items HTN History: Other Current Smoker Method Quit Packs a Day Years Used Pack Years No Cigarettes 30 Years Ago 1 40 40 Labs Hgb (g/dl) Hct (%) WBC (l/cumm) Platelets (thousands) 11.60-17.00 35.00-51.00 4.00-11.00 150.00-450.00 14.5 40.8 3.9 136 Glucose (mg/dl) BUN (mg/dl) Creatinine (mg/dl) BUN:Creatinine (1:x) 74.00-106.00 7.00-18.00 0.50-1.30 10.00-20.00 90 17 1.1 15.5 Na (meq/l) K (meq/l) 136.00-145.00 3.50-5.10 144 3.9 INR (PTT:PT) 0.90-1.10 1.1 Troponin I (ng/ml) CPK (u/l) CPK-MB (ng/ML) 0.02-0.05 26.00-308.00 0.50-3.60 0.29 53 Not Drawn Medication Medication Total Dose (Bolus/Oral) Medication Total Dosage/Unit 1% XYLOCAINE 20 mL FENTANYL 75 mcg HEPARIN 5000 units NTG (IC) 200 mcg PLAVIX 600 mg VERSED 2.5 mg Medications (Bolus/Oral) Medication Time Given Dosage/Unit Administered By Reason VERSED 12/04/2017 4:44:40 PM 2 mg Chrissy Chen 2 mg VERSED given in lab by Chrissy Chen RN in Right Antecubital via Peripheral IV. FENTANYL 12/04/2017 4:45:27 PM 50 mcg Chrissy Chen 50 mcg FENTANYL given in lab by Chrissy Chen RN via Peripheral IV. 1% XYLOCAINE 12/04/2017 4:52:30 PM 20 mL Hong Rooney 20 mL 1% XYLOCAINE given in lab by Hong Rooney in Right Groin via Subcutaneous. FENTANYL 12/04/2017 4:54:00 PM 25 mcg Roly Esparza RN 25 mcg FENTANYL given in lab by Roly Esparza RN via Peripheral IV. VERSED 12/04/2017 4:55:15 PM 0.5 mg Roly Esparza RN 0.5 mg VERSED given in lab by Roly Esparza RN via Peripheral IV. HEPARIN 12/04/2017 5:04:50 PM 5000 units Roly Esparza RN 5000 units HEPARIN given in lab by Roly Esparza RN via Peripheral IV. NTG (IC) 12/04/2017 5:06:14 PM 200 mcg Ifeoma Vallecillo 200 mcg NTG (IC) given in lab by Ifeoma Vallecillo RT(R) via Intra-coronary. PLAVIX 12/04/2017 5:35:52 PM 600 mg Roly Esparza RN 600 mg PLAVIX given in lab by Roly Esparza RN via Oral. Medication (Drip) Medication Time Given Dosage/Unit Concentration/Unit Diluent (ml) Solution IV Solutions 12/04/2017 4:10:29 PM 0 mL (IV) 500 NaCl .9 IV Solutions given in lab by Chrissy Chen RN in Right Antecubital via Peripheral IV. Pump/Drip Fl ow = 20 ml/hr using NaCl .9. Initial Case Assessment Cardiovascular HR Rhythm NIBP Chest Pain 71 Sinus 152/92 0 Edema Present Skin color Skin None Normal Warm Dry Circulatory - Right Pulses Dorsalis Pedis Femoral 2 3 Scale (0,1,2,3,4,d) Circulatory - Left Pulses Dorsalis Pedis Femoral 2 3 Scale (0,1,2,3,4,d) Neurological State Oriented to time-place- Alert Moves all extremities person Respiration - General Respiration Rate SpO2 (%) O2 (lpm) (B/min) 12 97 0 Initial Case Assessment Cardiovascular HR Rhythm NIBP Chest Pain 79 reg 155/88 0 Edema Present Skin color Skin None Normal Warm Circulatory - Right Pulses Dorsalis Pedis Femoral 3 3 Scale (0,1,2,3,4,d) Circulatory - Left Pulses Dorsalis Pedis Femoral 3 3 Scale (0,1,2,3,4,d) Circulatory - Lower Extremities Color Lower Right Color Lower Left Normal Normal Neurological State Oriented to time-place- Alert Moves all extremities person Respiration - General Respiration Rate SpO2 (%) (B/min) 9 97 Final Case Assessment Cardiovascular HR Rhythm NIBP 80 irreg 135/68 Edema Present Skin color Skin None Normal Warm Circulatory - Right Pulses Dorsalis Pedis Femoral 3 3 Scale (0,1,2,3,4,d) Circulatory - Left Pulses Dorsalis Pedis Femoral 3 3 Scale (0,1,2,3,4,d) Circulatory - Lower Extremities Color Lower Right Color Lower Left Normal Normal Neurological State Oriented to time-place- Alert Moves all extremities person Respiration - General Respiration Rate SpO2 (%) (B/min) 9 95 Chronological Log Time Study Chronological Log 16:10:11 Patient arrived via Bed. 16:10:12 Patient Name, D.O.B, / Armband Verified By R.N. 16:10:13 Consent signed by the physician and the patient and verified by the Taping Machine Operator staff. 16:10:14 Pre-op and post- op instructions given; patient acknowledges understanding of instructions. 16:10:14 Verbal Stimulation=2 Physical Stimulation=2 Airway=2 Respiration=2 TOTAL=8. (0=absent, 1=li mited, 2=present) 16:10:16 Presedation assessment performed by Taping Machine Operator RN. 16:10:19 Patient has been NPO for Less than 6Hrs. 16:10:20 Skin Breakdown- generalized bruising all extreamities. 16:10:25 Patient Warmer Placed on the Table. 16:10:26 Sohan Prominences Protected 16:10:28 A # 20 IV was noted in the Antecubital (right). Grade = 0 IV Solutions given in lab by Chrissy Chen, RN in Right Antecubital via Peripheral IV. Pump/D rip Flow = 20 ml/hr 16:10:29 using NaCl .9. 16:10:30 History and physical on the chart or being dictated. 16:14:34 A # 20 IV was noted in the Hand (right). Grade = 0 Assessment: Initial Case, HR=71 BPM, Rhythm=Sinus, AOIR=711/92 mmhg, Chest Pain=0, Edema=None, Color=Normal, Skin = Warm, Dry Right Pulses: Go Ped=2, Femoral=3 16:15:07 Left Pulses: Go Ped=2, Femoral=3 Neurological: State=Alert, Ox3, HERNANDEZ Respiration: Resp=12 B/min, SpO2=97 %, O2=0 lpm Vitals capture started with the following parameters, Patient=Adult, Interval=5 min, Initial Pr yofaru=463 mmHg, 16:16:22 Deflation Rate=5 mmHg, Cuff placed on Left Arm 16:16:53 Reference ECG taken 16:17:03 HR=72 bpm, JKCC=988/92 mmhg, SpO2=98.0 %, Resp=10 B/min, Pain=0, Cara=10, Sewell=2 16:21:11 Bilateral groins prepped with 2% chlorhexidine, and draped after a 3 minute waiting time. 16:22:04 HR=71 bpm, AYEN=964/92 mmhg, SpO2=97.0 %, Resp=11 B/min, Pain=0, Cara=10, Sewell=2 16:26:09 Pressure channel 1 zeroed. 16:27:05 HR=78 bpm, PHBG=503/88 mmhg, SpO2=98.0 %, Resp=9 B/min, Pain=0, Cara=10, Sewell=2 16:27:06 MD texted Assessment: Initial Case, HR=79 BPM, Rhythm=reg, JUHG=858/88 mmhg, Chest Pain=0, Edema=None, Co wilfred=Normal, Skin = Warm Right Pulses: Go Ped=3, Femoral=3 Left Pulses: Go Ped=3, Femoral=3 16:27:37 Lower Right Extremities: Color=Normal Lower Left Extremities: Color=Normal Neurological: State=Alert, Ox3, HERNANDEZ Respiration: Resp=9 B/min, SpO2=97 % 16:28:16 Bilateral groins prepped with 2% chlorhexidine, and draped after a 3 minute waiting time. 16:29:15 heparin discontinued at 1550 16:32:06 HR=80 bpm, RGBN=894/81 mmhg, SpO2=97.0 %, Resp=8 B/min, Pain=0, Cara=10, Sewell=2 16:37:05 HR=76 bpm, HSDR=483/85 mmhg, SpO2=97.0 %, Resp=9 B/min, Pain=0, Cara=10, Sewell=2 16:38:20 MD responded 16:41:49 MD arrived. 16:42:06 HR=76 bpm, IUFA=586/85 mmhg, SpO2=97.0 %, Resp=9 B/min, Pain=0, Cara=10, Sewell=2 16:44:40 2 mg VERSED given in lab by Chrissy Chen, RN in Right Antecubital via Peripheral IV. 16:45:27 50 mcg FENTANYL given in lab by Chrissy Chen, REYNOLD via Peripheral IV. 16:47:03 HR=75 bpm, XVKU=118/83 mmhg, SpO2=96.0 %, Resp=10 B/min, Pain=0, Cara=10, Sewell=2 Time Out. Correct patient, correct procedure, correct physician, power injector loaded with con trast with surgical team 16:49:42 present. Time Out Concurred by MD and individual staff in procedure. 16:51:27 Case Start 16:51:34 Verbal Stimulation=2 Physical Stimulation=2 Airway=2 Respiration=2 TOTAL=8. (0=absent, 1=li mited, 2=present) 16:52:04 HR=78 bpm, UGJS=234/76 mmhg, SpO2=96.0 %, Resp=16 B/min, Pain=0, Cara=10, Sewell=2 16:52:30 20 mL 1% XYLOCAINE given in lab by Hong Rooney in Right Groin via Subcutaneous. 16:54:00 25 mcg FENTANYL given in lab by Roly Esparza RN via Peripheral IV. 16:54:09 Access site was Right Femoral Artery with ultrasound device 16:54:24 A wire was inserted via Fem Art (right). 16:54:26 A SHEATH, FR5 TERUMO (10CM) FR 5 was advanced into the Fem Art (right) using the Percutaneo us technique. 16:55:15 0.5 mg VERSED given in lab by Roly Esparza RN via Peripheral IV. A PIGTAIL ANG. INFINITI CATHETER FR 5 was advanced over a wire. OMNIPAQUE, 350 MG, 150ML 150ML was used 16:56:02 for injections. Recorded Pressure: LV, MF=994, Condition=Condition 1 16:56:06 (Left Ventricle) LV 140/5/5 16:57:05 HR=71 bpm, WWEV=856/77 mmhg, SpO2=97.0 %, Resp=8 B/min, Pain=0, Cara=10, Sewell=2 Recorded Pressure: LV, Ao, HR=77, Condition=Condition 1 16:57:29 (Left Ventricle) LV 131/4/8, (Aorta) Ao 114/60/87 16:57:59 Catheter was removed 16:58:04 Activated Clotting Time Drawn A JL 4.0 INFINITI CATHETER FR 5 was advanced over a wire. OMNIPAQUE, 350 MG, 150ML 150ML was us ed for 16:58:17 injections. Recorded Pressure: Ao, HR=77, Condition=Condition 1 16:59:08 (Aorta) Ao 136/75/102 16:59:25 The LCA was injected and visualized at various angles. OMNIPAQUE, 350 MG, 150ML 150ML used . 17:01:04 Catheter was removed 17:01:21 ACT (Normal Range 90-180) = 171 A AR MOD INFINITI CATHETER FR 5 was advanced over a wire. OMNIPAQUE, 350 MG, 150ML 150ML was us ed for 17:01:38 injections. 17:01:50 The RCA was injected and visualized at various angles. OMNIPAQUE, 350 MG, 150ML 150ML used . 17:02:04 HR=88 bpm, FHQI=620/82 mmhg, SpO2=95.0 %, Resp=9 B/min, Pain=0, Cara=10, Sewell=2 17:02:47 Catheter was removed A SHEATH, FR6 RADIAL PRELUDE EASE 11CM FR 6 was exchanged in the Fem Art (right). This was nece ssary in order 17:03:00 ~REASON~. 17:04:50 5000 units HEPARIN given in lab by Roly Esparza RN via Peripheral IV. A XB 3.5 GUIDE CATHETER FR 6 was advanced over a wire. OMNIPAQUE, 350 MG, 150ML 150ML was used for 17:05:39 injections. 17:05:53 OMNIPAQUE, 350 MG, 50ML 50ML and 30 CHACORTA INDEFLATOR added. 17:06:14 200 mcg NTG (IC) given in lab by Ifeoma Vallecillo RT(R) via Intra-coronary. 17:07:08 A WIRE, BALANCE MIDDLEWEIGHT 190CM 190CM was inserted via Fem Art (right). 17:07:09 HR=81 bpm, RINU=313/68 mmhg, SpO2=96.0 %, Resp=21 B/min, Pain=0, Cara=10, Sewell=2 17:08:18 Interventional wire has crossed the lesion A BALLOON, 2.5 X 15MM EUPHORA 15MM was inserted over WIRE, BALANCE MIDDLEWEIGHT 190CM 190CM via the 17:09:49 LAD Prox. 17:10:04 Activated Clotting Time Drawn A BALLOON, 2.5 X 15MM EUPHORA 15MM over a WIRE, BALANCE MIDDLEWEIGHT 190CM 190CM in the LAD Pro x was 17:10:53 inflated using a 30 CHACORTA INDEFLATOR at 6 chacorta for 10 sec. 17:12:02 HR=56 bpm, RZJE=684/70 mmhg, SpO2=96 %, Resp=18 B/min, Pain=0, Cara=10, Sewell=2 A BALLOON, 2.5 X 15MM EUPHORA 15MM over a WIRE, BALANCE MIDDLEWEIGHT 190CM 190CM in the LAD Pro x was 17:12:22 inflated using a 30 CHACORTA INDEFLATOR at 9 chacorta for 19 sec. A BALLOON, 2.5 X 15MM EUPHORA 15MM over a WIRE, BALANCE MIDDLEWEIGHT 190CM 190CM in the LAD Pro x was 17:13:06 inflated using a 30 CHACORTA INDEFLATOR at 9 chacorta for 19 sec. A BALLOON, 2.5 X 15MM EUPHORA 15MM over a WIRE, BALANCE MIDDLEWEIGHT 190CM 190CM in the LAD Pro x was 17:13:27 inflated using a 30 CHACORTA INDEFLATOR at 14 chacorta for 12 sec. 17:14:42 Balloon Removed. An STENT, 2.75 22 INTEGRITY 2.75 22 Bare Metal Stent was inserted through a XB 3.5 GUIDE CATHET ER FR 6 over a 17:14:49 WIRE, BALANCE MIDDLEWEIGHT 190CM 190CM. A STENT, 2.75 22 INTEGRITY 2.75 22 was deployed using a 30 CHACORTA INDEFLATOR at 7 atmospheres for 24 seconds in 17:15:16 the LAD Prox. 17:15:24 ACT (Normal Range 90-180) = 294 17:17:01 HR=74 bpm, UTUF=307/85 mmhg, SpO2=92.0 %, Resp=7 B/min, Pain=0, Cara=10, Sewell=2 17:17:44 Delivery device removed 17:17:59 The LCA was injected and visualized at various angles. OMNIPAQUE, 350 MG, 150ML 150ML use d. A BALLOON, 2.75 X 15MM NC EUPHORA 15MM was inserted over WIRE, BALANCE MIDDLEWEIGHT 190CM 190C M via 17:19:35 the LAD Prox. A BALLOON, 2.75 X 15MM NC EUPHORA 15MM over a WIRE, BALANCE MIDDLEWEIGHT 190CM 190CM in the LA D Prox 17:20:03 was inflated using a 30 CHACORTA INDEFLATOR at 15 chacorta for 34 sec. 17:22:08 HR=80 bpm, KCTI=792/77 mmhg, SpO2=93.0 %, Resp=3 B/min, Pain=0, Cara=10, Sewell=2 A BALLOON, 2.75 X 15MM NC EUPHORA 15MM over a WIRE, BALANCE MIDDLEWEIGHT 190CM 190CM in the LA D Prox 17:22:14 was inflated using a 30 CHACORTA INDEFLATOR at 12 chacorta for 14 sec. 17:22:54 Balloon Removed. 17:23:15 The LCA was injected and visualized at various angles. OMNIPAQUE, 350 MG, 150ML 150ML use d. 17:23:55 Wire removed 17:25:21 Catheter was removed 17:25:42 Case End Assessment: Final Case, HR=80 BPM, Rhythm=irreg, XWKQ=763/68 mmhg, Edema=None, Color=Normal, S kin = Warm Right Pulses: Go Ped=3, Femoral=3 Left Pulses: Go Ped=3, Femoral=3 17:25:58 Lower Right Extremities: Color=Normal Lower Left Extremities: Color=Normal Neurological: State=Alert, Ox3, HERNANDEZ Respiration: Resp=9 B/min, SpO2=95 % 17:27:08 HR=78 bpm, CEMC=782/68 mmhg, SpO2=94.0 %, Resp=12 B/min, Pain=0, Cara=10, Sewell=2 17:27:31 Catheter(s) removed without difficulty 17:27:35 An injection in the Fem Art (right) was made through the SHEATH, FR5 TERUMO (10CM) FR 5. 17:32:11 HR=92 bpm, OECX=747/73 mmhg, SpO2=95.0 %, Resp=13 B/min, Pain=0, Cara=10, Sewell=2 17:35:52 600 mg PLAVIX given in lab by Roly Esparza RN via Oral. 17:37:12 HR=76 bpm, QCRU=766/72 mmhg, SpO2=96.0 %, Resp=11 B/min, Pain=0, Cara=10, Sewell=2 17:42:04 Vitals capture stopped. End Study - Contrast Media Used In Study Contrast Total Opened (mL) Total Used (mL) Total Wasted (mL) Omnipaque 180 180 0 End Study - Maximum Contrast Load Max Contrast Load (mL) 324.4 End Study - Radiation Exposure Fluoro Time (minutes) 5.3 End Study - Sheaths Sheaths Pulled By Sheath Hold Time (min) Ifeoma Vallecillo End Study - Patient Disposition Complications Transferred To Interventional Outcome No Regular Bed successful
--- NOTE | 2017-12-04 18:26 | MR ---
cc: Hong Rooney MD, [place] MD DATE: 12/04/2017 INDICATIONS: Non-ST elevation myocardial infarction, class 4 angina. PROCEDURE PERFORMED: 1. Retrograde catheterization with left ventriculography and selective coronary angiography. 2. Angioplasty and stenting of the proximal left anterior descending artery. 3. Moderate sedation. ACCESS SITE: Right femoral artery. EQUIPMENT USED: 5-Yi pigtail catheter, JL4 and AR modified coronary catheters, XB LAD 3.5 guide, BMW wire, 2.5 x 15 mm balloon for predilatation, 2.75 x22 mm Integrity bare-metal stent at 7 atmospheres postdilated with 2.75 x 15 mm noncompliant balloon at 15 atmospheres. MEDICATIONS: Versed IV, fentanyl IV, heparin IV, nitroglycerin IC, Plavix 600 mg p.o. CONTRAST: Omnipaque 180 mL COMPLICATIONS: None. ESTIMATED BLOOD LOSS: Less than 10 mL METHOD OF HEMOSTASIS: Angio-Seal closure. HEMODYNAMICS: Heart rate 70 beats per minute, Left ventricular end systolic pressure 44 mmHg, left ventricle 09/03/4, aorta 09/03/75/102. LEFT VENTRICULOGRAPHY: Ejection fraction 50%. Wall motion focal mid anterior hypokinesis, no mitral regurgitation. CORONARY ANGIOGRAPHY: Left main coronary artery patent, left anterior descending artery has severe 95% stenosis in the proximal portion. Lesion length 18 mm. Pre-DEL flow 2, Post-DEL flow 3, post stenosis 0. Mid and distal LAD patent. First diagonal artery has 30% ostial stenosis and is covered by the LAD stent. Left circumflex artery has 30% stenosis, OM-1 30% proximal portion. Right coronary artery has long 70% stenosis in the mid portion. PDA patent, PLV patent. The ramus intermedius has 40% ostial stenosis. Post-intervention angiography revealed excellent patency of the stented segment and no evidence of dissection, thrombosis, or distal embolization. DIAGNOSES: 1. Multivessel coronary artery disease with 95% stenosis of the proximal descending artery and 70% stenosis of the mid right coronary artery. 2. Borderline normal left ventricular systolic function. 3. Successful angioplasty and stenting of the proximal left anterior descending artery. DISPOSITION: Mr. Celeste will continue Plavix for at least 1 month and aspirin indefinitely. We will also continue aggressive modification of his cardiac risk factors. I will see him back in followup in our office after discharge. MD DINO Judd , 05:43 PM , 06:24 PM
[2017-12-04 19:02] LABS: TROPONIN I 0.34 NG/ML (0.02-0.05)
[2017-12-04] MEDS ORDERED: ATORVASTATIN 10 MG TAB PO SCH (21:00)
[2017-12-04] MEDS ORDERED: CARVEDILOL 12.5 MG TAB PO SCH (21:00)
[2017-12-04] MEDS: CARVEDILOL 3.125 MG TAB PO SCH (21:45)
[2017-12-04 22:04] LABS: AUTOMATED NEUTROPHIL # 2.7 TH/MM3 (1.8-7.7); BASOPHIL % 0.4 % (0.0-2.0); HEMOGLOBIN 13.7 GM/DL (13.0-17.0); LYMPH % 27.1 % (9.0-44.0); LYMPHOCYTE # 1.2 TH/MM3 (1.0-4.8); MEAN CELL VOLUME 95.7 FL (80.0-100.0); MEAN CORPUSCULAR HEMOGLOBIN 33.5 PG (27.0-34.0); MEAN PLATELET VOLUME 7.3 FL (7.0-11.0); MONO % 9.1 % (0.0-8.0); MONOCYTE # 0.4 TH/MM3 (0-0.9); NEUT % 62.4 % (16.0-70.0); PLATELET COUNT 117 TH/MM3 (150-450); RED BLOOD COUNT 4.08 MIL/MM3 (4.50-5.90); WHITE BLOOD COUNT 4.3 TH/MM3 (4.0-11.0)
[2017-12-05] VITALS (7 sets, daily range): BP systolic 123–142; BP diastolic 74–80; PULSE 62–79; RESP 16; TEMP 97.3; O2SAT 93–97
[2017-12-05] MEDS ORDERED: LEVOTHYROXINE SODIUM 25 MCG TAB PO SCH (06:00)
[2017-12-05 06:43] LABS: AUTOMATED NEUTROPHIL # 2.4 TH/MM3 (1.8-7.7); BASOPHIL % 0.4 % (0.0-2.0); EOSINOPHIL % 0.7 % (0.0-4.0); HEMATOCRIT 39.6 % (39.0-51.0); HEMOGLOBIN 13.7 GM/DL (13.0-17.0); LYMPH % 28.4 % (9.0-44.0); LYMPHOCYTE # 1.1 TH/MM3 (1.0-4.8); MEAN CELL VOLUME 97.6 FL (80.0-100.0); MEAN CORPUSCULAR HEMOGLOBIN 33.8 PG (27.0-34.0); MEAN CORPUSCULAR HGB CONC 34.6 % (32.0-36.0); MEAN PLATELET VOLUME 7.5 FL (7.0-11.0); MONO % 11.8 % (0.0-8.0); MONOCYTE # 0.5 TH/MM3 (0-0.9); NEUT % 58.7 % (16.0-70.0); PLATELET COUNT 116 TH/MM3 (150-450); RED BLOOD COUNT 4.06 MIL/MM3 (4.50-5.90); RED CELL DISTRIBUTION WIDTH 13.2 % (11.6-17.2)
[2017-12-05 07:12] LABS: BICARBONATE 25.9 MEQ/L (21.0-32.0); CALCIUM 8.1 MG/DL (8.5-10.1); CHOLESTEROL/ HDL RATIO 2.84 RATIO; CREATININE 1.04 MG/DL (0.60-1.30); HDL CHOLESTEROL 43.6 MG/DL (40.0-60.0)
[2017-12-05] MEDS ORDERED: ASPI81 PO (08:04)
[2017-12-05] MEDS ORDERED: CARV3.125 PO (08:04)
[2017-12-05] MEDS ORDERED: PLAV75TA29 PO (08:04)
[2017-12-05] MEDS ORDERED: LIPI10TA PO (08:04)
--- NOTE | 2017-12-05 08:04 | HHI.DS ---
Discharge Summary Admission Date December 04, 2017 at 06:45 Discharge Date: December 05, 2017 Admitting Diagnosis Chest pain, elevated troponin (1) CAD (coronary artery disease) ICD Code: I25.10 - Atherosclerotic heart disease of [place] coronary artery without angina pectoris (2) HTN (hypertension) ICD Code: I10 - Essential (primary) hypertension (3) Diabetes mellitus type 2 in nonobese ICD Code: E11.9 - Type 2 diabetes mellitus without complications Procedures cardiac cath by Dr Rooney 12/04/17 Brief History - From Admission Patient is an 87-year-old male with past medical history of atrial fibrillation status post ablation, CVA with short-term memory deficit, hyperlipidemia, hypertension, hyperthyroidism presented to the emergency room with complaints of chest pains. History is obtained from significant other who states that around 7 PM last night patient started grabbing his chest and could not breathe. He also started shaking and she took his blood pressure which was a systolic blood pressure 180s. She called EMS, they came and evaluated him at his house and since because he had eaten one quarter pounder, they thought it was related to indigestion as EKG was normal and he was not taken to the hospital. Around 4 AM, when he was back from the bathroom, he started again experiencing excruciating pain. She decided to call EMS again. On both occasions he received nitroglycerin spray. gave him a full dose of aspirin. Patient was not diaphoretic per significant other, and did not complain of any lightheadedness or dizziness. She did note that he had poor capillary refill on exam while the EMS were there. Currently, patient denies any chest pain, shortness of breath, nausea or vomiting. CBC/BMP: 12/05/17 0608 12/05/17 0608 Significant Findings Laboratory Tests Test 12/04/17 05:40 12/04/17 11:49 12/04/17 14:33 12/04/17 18:27 White Blood Count 3.9 TH/MM3 (4.0-11.0) Red Blood Count 4.20 MIL/MM3 (4.50-5.90) Mean Corpuscular Hemoglobin 34.6 PG (27.0-34.0) Platelet Count 136 TH/MM3 (150-450) Monocytes (%) (Auto) 11.7 % (0.0-8.0) Chloride Level 111 MEQ/L (98-107) Estimat Glomerular Filtration Rate 64 ML/MIN (>89) Troponin I 0.29 NG/ML (0.02-0.05) 0.36 NG/ML (0.02-0.05) 0.34 NG/ML (0.02-0.05) Activated Partial Thromboplast Time 47.6 SEC (24.3-30.1) Test 12/04/17 21:40 12/05/17 06:08 Red Blood Count 4.08 MIL/MM3 (4.50-5.90) 4.06 MIL/MM3 (4.50-5.90) Platelet Count 117 TH/MM3 (150-450) 116 TH/MM3 (150-450) Monocytes (%) (Auto) 9.1 % (0.0-8.0) 11.8 % (0.0-8.0) Calcium Level 8.1 MG/DL (8.5-10.1) Chloride Level 110 MEQ/L (98-107) Estimat Glomerular Filtration Rate 68 ML/MIN (>89) Imaging Last Impressions Chest X-Ray 12/04/17 4094 Signed Impressions: Service Date/Time: Monday, December 04, 2017 05:51 - CONCLUSION: Mild atelectatic changes/faint airspace disease in the left base. Jose Cosme MD PE at Discharge GENERAL: elderly male, pleasant, appears comfortable CARDIOVASCULAR: Regular rate and rhythm without murmurs RESPIRATORY: Clear to auscultation. Breath sounds equal bilaterally. No wheezes GASTROINTESTINAL: Abdomen soft, non-tender, nondistended. No guarding. MUSCULOSKELETAL: Extremities without edema. NEUROLOGICAL: Awake and alert. Normal speech. Pt does forget recent events/ questions Pt update on day of discharge No chest pain overnight no shortness of breath diaphoresis nausea. Feels much better. Cleared by cardiology for discharge to follow-up as outpatient. Patient feels comfortable to go home. All questions answered to the best of my ability. Hospital Course NSTEMI: presented w chest pains, s/p nitro. EKG reviewed and didn't show any ST elevations or depressions. Cardiology notified and plans on cardiac cath later this pm. on heparin gtt. Pt already received full dose of ASA. added nitropaste , coreg 12.5mg po BID, coreg decreasded to 6.25 mg po bid. On statin, check lipid profile. S/p cardiac cath by Dr Rooney 12/04/17 with following findingas: 1. Multivessel coronary artery disease with 95% stenosis of the proximal descending artery and 70% stenosis of the mid right coronary artery. 2. Borderline normal left ventricular systolic function. 3. Successful angioplasty and stenting of the proximal left anterior descending artery. Patient to continue Plavix for at least 1 month and aspirin indefinitely per cardiology recommendations.. We will also continue aggressive modification of his cardiac risk factors. Cleared for DC by cardio to follow up in his office as OP. HTN: continue home lisinopril. added vasotec prn Hyperlipidemia: On statin, lipid profile reviewed hypothyroidism: resume synthroid The patient improved. No more chest pain. Is cleared by cardiology for discharge to follow-up as outpatient. Patient improved discharge home in stable condition to follow-up with PCP and consultants as outpatient. Pt Condition on Discharge: Stable Discharge Disposition: Discharge Home Discharge Time: > 30 minutes Discharge Instructions DIET: Follow Instructions for: Heart Healthy Diet, Diabetic Diet Activities you can perform: Regular-No Restrictions Follow up Referrals: Cardiology - 1 Week with Hong Ronoey MD PCP Follow-up - 2-3 Days New Medications: Aspirin (Tgt Aspirin) 81 Mg Chw 81 MG PO DAILY for Blood Clot Prevention, #30 EA Atorvastatin (Lipitor) 10 Mg Tab 40 MG PO HS for Cholesterol Management, #30 TAB Carvedilol (Coreg) 3.125 Mg Tab 6.25 MG PO Q12HR for Blood Pressure Management, #60 TAB Clopidogrel (Plavix) 75 Mg Tab 75 MG PO DAILY for Blood Clot Prevention, #30 TAB Continued Medications: Levothyroxine (Levothyroxine) 25 Mcg Tab 25 MCG PO DAILY for Thyroid, #30 TAB 0 Refills Lisinopril (Lisinopril) 5 Mg Tab 5 MG PO DAILY for Blood Pressure Management, #30 TAB 0 Refills Phytonadione (Vitamin K) 100 Mcg Tab Discontinued Medications: Simvastatin (Simvastatin) 5 Mg Tab 5 MG PO DAILY for Cholesterol Management, #30 TAB 0 Refills Cosma,Anita MD December 05, 2017 08:04
[2017-12-05] MEDS: DOCUSATE SODIUM 50 MG/SENNA 8.6 MG TAB PO SCH (08:59)
[2017-12-05] MEDS: LISINOPRIL 5 MG TAB PO SCH (08:59)
[2017-12-05] MEDS ORDERED: CLOPIDOGREL 75 MG TAB PO SCH (09:00)
[2017-12-05] MEDS ORDERED: ASPIRIN 81 MG CHEW TAB PO SCH (09:00)
[2017-12-05] MEDS: CARVEDILOL 3.125 MG TAB PO SCH (09:00)
[2017-12-05] MEDS: SODIUM CHLORIDE 0.9% FLUSH 10 ML FLUSH IV FLUSH SCH (09:00)
[2017-12-05] MEDS ORDERED: ASPIRIN EC 81 MG TABEC PO SCH (09:00)
--- NOTE | 2017-12-05 14:28 | EKG ---
Date Performed: 12/04/2017 Time Performed: 11:53:13 PTAGE: 87 years EKG: SINUS BRADYCARDIA WITH FIRST DEGREE AV BLOCK MARKED LEFT AXIS DEVIATION INCOMPLETE RIGHT BU NDLE BRANCH BLOCK NONSPECIFIC T-WAVE ABNORMALITY ABNORMAL ECG Since the PREVIOUS TRACING , no significant change noted PREVIOUS TRACIN12/04/2017 05.23 DOCTOR: Barbara Ennis Interpretating Date/Time 12/05/2017 14:21:58
--- NOTE | 2017-12-05 14:34 | EKG ---
Date Performed: 12/05/2017 Time Performed: 05:33:38 PTAGE: 87 years EKG: Sinus rhythm with 1st degree A-V block Prolonged QT interval Left axis deviation Ant/septal and lateral T wave ch anges may be due to myocardial ischemia Abnormal ECG PREVIOUS TRACING : 12/04/2017 11.53 Since the prior tracing, the patient has developed QT prolo ngation and some deepening of the T-waves. Electrolyte imbalance and myocardial disease as well as dr ug effects should be excluded clinically. DOCTOR: Barbara Ennis Interpretating Date/Time 12/05/2017 14:34:19
== END 2017-12-05 11:04 | disposition home or self-care (01) | DRG 248 ==
LOC: NEPE 05:24 → NEDA 06:45 → N04A 08:27 → HCPC 16:41 → HCIS 16:42
PROVIDERS: ADMIT Hospitalist; ATTEND Hospitalist
PROC: 02703DZ Dilation of Coronary Artery, One Artery with Intraluminal Device, Percutaneous Approach (ICD-10-PCS; principal; 2017-12-04)
PROC: 4A023N7 Measurement of Cardiac Sampling and Pressure, Left Heart, Percutaneous Approach (ICD-10-PCS; 2017-12-04)
PROC: B2111ZZ Fluoroscopy of Multiple Coronary Arteries using Low Osmolar Contrast (ICD-10-PCS; 2017-12-04)
PROC: B2151ZZ Fluoroscopy of Left Heart using Low Osmolar Contrast (ICD-10-PCS; 2017-12-04)
DX: I25.119 Atherosclerotic heart disease of native coronary artery with unspecified angina pectoris (principal); I21.4 Non-ST elevation (NSTEMI) myocardial infarction; I48.91 Unspecified atrial fibrillation; E11.9 Type 2 diabetes mellitus without complications; I10 Essential (primary) hypertension; I45.10 Unspecified right bundle-branch block; E78.00 Pure hypercholesterolemia, unspecified; E78.5 Hyperlipidemia, unspecified; E03.9 Hypothyroidism, unspecified; R41.3 Other amnesia; I44.0 Atrioventricular block, first degree; Z87.891 Personal history of nicotine dependence; Z86.73 Personal history of transient ischemic attack (TIA), and cerebral infarction without residual deficits; Z79.82 Long term (current) use of aspirin; Z82.49 Family history of ischemic heart disease and other diseases of the circulatory system; Z82.3 Family history of stroke
CPT/HCPCS: 71045; 80048; 80053; 80061; 82550; 83690; 83735; 83880; 84484; 85002; 85025; 85610; 85730; 92928; 93005; 93458; 99152; 99153; C1725; C1760; C1769; C1876; C1887; C1893; J1644; J2250; J3010; J7030; Q9967